=== PATIENT | female | born 1995 | race Caucasian/White ===

== ENCOUNTER 2018-01-25 23:30 | Emergency (ER) | payer MEDICAID, SELFPAY ==
[2018-01-25 23:31] VITALS: BP 123/86; PULSE 76; RESP 16; TEMP 37.2; O2SAT 98; BMI 26.9
--- NOTE | 2018-01-25 23:41 | EKG12_ITS ---
Test Reason : CP Blood Pressure : / mmHG Vent. Rate : 081 BPM Atrial Rate : 081 BPM P-R Int : 130 ms QRS Dur : 080 ms QT Int : 386 ms P-R-T Axes : 048 027 039 degrees QTc Int : 448 ms Sinus rhythm with marked sinus arrhythmia Otherwise normal ECG Confirmed by RUPAL GIRALDO, PADDY ([id number]), assistant film editor INDU MONTEZ ([id number]) on 01/27/2018 2:29:15 PM Referred By: ELIZA Confirmed By:PADDY GOLDSMITH MD
--- NOTE | 2018-01-26 00:48 | ED.DCSUM_ITS ---
- ER Visit Summary Date of Service: 01/26/18 Chief Complaint: Numerous symptoms and complaints History of Present Illness: The patient is a 22 F states she has a headache with nonproductive cough, runny nose, sore throat and abdominal pain that started several days ago. She also complains of chest pain that has a musculoskeletal component as well as pleuritic component. She states she had a spontaneous miscarriage 2 weeks ago. She states she was 2-3 weeks gestation. She denies fever, chills night sweats. She denies headache, photophobia steps of her neck. She denies any vomiting or diarrhea. She denies dysuria, frequency, urgency or hematuria. She denies any skin lesions. Physical Examination: She did not does not appear in any significant discomfort. Vital signs are marked for slight elevation blood pressure 123/86. Head is atraumatic normocephalic. Pupils equal round reactive. Extra muscles are intact. TMs are pearly white phlegm is noted. Nares patent with clear discharge. Posterior pharynx without erythema or exudate. Uvula is midline. There is postnasal drainage noted. Trach is midline with no stridor. Lungs are clear to auscultation. Heart is regular without murmur, gallop or rub. She does have reproducible chest pain. Abdomen is soft and has pain out of proportion to light tactile stimulus. Bowel sounds are present normal. There is no asymmetry, swelling, discoloration, leg vein distention, palpable cords or tenderness along the distribution of the deep venous system. She is alert oriented ?3 with a nonfocal neurologic exam Test Results: None are indicated. EKG obtained per nursing protocol feels a sinus rhythm rate of 81 and is normal. Emergency Department Course and Treatment: Patient was informed that her presentation consistent with a viral infection. She will receive a dose of ibuprofen since no contraindication and Bentyl. Treatment Plan: Prescription for anti-inflammatory Disposition: Discharged home with referral to Dr. Pritesh Mcghee iii since she does not have a physician in the area. Impression: 1. Acute viral illness 2. Pleuritic chest pain 3. Abdominal pain This note was generated with [employer] dictation software. It may contain incorrect words, spelling, and punctuation that were not noted in review of the chart prior to signing ED Disposition - Plan for ED Patient: Disposition: Home or Assisted Living Chief Complaint: Chest Pain Instructions: ED Viral Syndrome Prescriptions: Dicyclomine HCl [Bentyl] 20 mg PO TIDAC #10 cap Naproxen [Naprosyn] 500 mg PO BID #10 tab Referrals: Care Physician,No Primary [Primary Care Provider] - Pritesh Mcghee III, MD [STAFF PHYSICIAN] - 10-14 Days if not better Additional Instructions: You may be ill for another 10-14 days. Because you are smoker you may have a cough for 4 weeks.
[2018-01-26 00:52] VITALS: BP 100/56; PULSE 74; RESP 16; O2SAT 99
[2018-01-26] MEDS: Naproxen 250 MG Tablet 500 MG PO (00:53)
[2018-01-26] MEDS: Dicyclomine 10 MG Capsule 20 MG PO (00:54)
== END 2018-01-26 01:30 | disposition home or self-care (01) ==
LOC: ED 01-26 01:22
PROVIDERS: Emergency Provider Emergency Medicine
DX: J02.9 Acute pharyngitis, unspecified (principal); B34.9 Viral infection, unspecified; R09.1 Pleurisy; R07.81 Pleurodynia; R03.0 Elevated blood-pressure reading, without diagnosis of hypertension; R10.9 Unspecified abdominal pain; R51 Headache; R11.0 Nausea; Z72.0 Tobacco use
CPT/HCPCS: 93005; 99283

== ENCOUNTER 2018-02-01 21:26 | Emergency (ER) | payer MEDICAID, SELFPAY ==
[2018-02-01 21:27] VITALS: BP 128/89; PULSE 89; RESP 19; TEMP 37; O2SAT 99; BMI 27.0
--- NOTE | 2018-02-01 23:10 | ED.DCSUM_ITS ---
- ER Visit Summary Date of Service: 02/01/18 Chief Complaint: Bilateral ankle and posterior shoulder pain History of Present Illness: The patient is a 22 F significant past medical or surgical history. Patient started a new job about 3 weeks ago. Since that time due to standing she has had foot and ankle pain. Also at times posterior right shoulder pain. She denies any falls or trauma. Denies any fever. Denies any other complaints. Physical Examination: Well appearing young female. Vital signs are stable afebrile. She is in no acute distress. Pulse ox 99% on room air no signs of hypoxia. HEENT exam unremarkable. Neck nontender no lymphadenopathy. Trachea midline. Lungs clear to auscultation bilaterally. Heart regular rate and rhythm no murmur. Chest nontender. Abdomen soft. Nontender. Nondistended. Normal bowel sounds no peritoneal signs. Extremities moves all 4. Neurovascular intact. There are no red, hot or swollen joints. There is no specific areas of tenderness. She has normal range of motion of both the upper and lower extremities. Back exam is unremarkable nontender. Neurologic exam is normal. Test Results: None Emergency Department Course and Treatment: Patient's history and exam is consistent with just muscle aches and pain from a new job and being deconditioned. There are no bony deformities. No x-rays or lab workup is necessary. Treatment Plan: Motrin and discharged. Motrin and Tylenol at home. Ice to all sore areas. Hot bath and warm shower. Disposition: Discharge Impression: Myalgias This note was generated with [employer] dictation software. It may contain incorrect words, spelling, and punctuation that were not noted in review of the chart prior to signing ED Disposition - Plan for ED Patient: Chief Complaint: Other, Pain/Inj Referrals: Care Physician,No Primary [Primary Care Provider] -
--- NOTE | 2018-02-01 23:10 | ED.DEP ---
ED Disposition - Plan for ED Patient: Disposition: Home or Assisted Living Chief Complaint: Other, Pain/Inj Instructions: ED Muscle Aching Referrals: Israel Torre MD [NON-STAFF] - 10-14 Days if not better Additional Instructions: He still sore areas. Hot shower warm bath to relax her muscles. Tylenol and Motrin for pain and inflammation. Call follow-up primary care physician if not improving.
[2018-02-01] MEDS: Ibuprofen 600 MG Tablet PO (23:19)
[2018-02-01 23:23] VITALS: RESP 16
== END 2018-02-01 23:24 | disposition home or self-care (01) ==
PROVIDERS: Emergency Provider Emergency Medicine
DX: M79.1 Myalgia (principal); Z72.0 Tobacco use
CPT/HCPCS: 99282

== ENCOUNTER 2018-02-13 06:37 | Emergency (ER) | payer MEDICAID, SELFPAY ==
[2018-02-13 06:37] VITALS: BP 135/83; PULSE 74; RESP 18; TEMP 36.7; O2SAT 99; BMI 27.4
[2018-02-13 07:03] LABS: Mucous, Urine 0 SEEN /hpf (<or=2+)
--- NOTE | 2018-02-13 07:03 | ED.RN ---
Report received, care of patient assumed.
[2018-02-13 07:08] LABS: Color, Urine Yellow (Yellow); Glucose, Dipstick Normal (Normal); Ketone-Dipstick Negative (Negative); Leukocyte Esterase-Dipstick 25 /ul (Negative); Nitrite-Dipstick Negative (Negative); Occult Blood-Urine 50 /ul (Negative); Protein-Dipstick 15 mg/dl (Negative); Urine Bilirubin Dipstick Negative (Negative); Urine Clarity Sl. Cloudy (Clear); Urine Urobilinogen Normal (Normal)
[2018-02-13 07:18] LABS: Bacteria RARE /hpf (None Seen); Red Blood Cells-Urine 0-5 SEEN /hpf (0-5); Squamous Epithelial Cells - UA 5-10 SEEN /hpf (5-10); White Blood Cells 0-5 SEEN /hpf (0-5)
--- NOTE | 2018-02-13 07:18 | ED.DCSUM_ITS ---
- ER Visit Summary Date of Service: 02/13/18 Chief Complaint: Hematuria and flank pain History of Present Illness: The patient is a 22 F reports hematuria for the past 2 days. She denies dysuria or frequency. She complains of mild lower back pain. She does report a history of kidney stones but states they have always just disappeared. Patient is not sure of her last menses. She states she had a miscarriage a couple months ago. Physical Examination: Vital signs are unremarkable. Patient sitting upright in bed in no acute distress. Head neck examination is unremarkable. Heart is regular rate and rhythm. Lung sounds are clear. Abdomen is soft with mild suprapubic tenderness. No guarding or rebound. Back examination reveals no true CVA tenderness. She has mild reducible tenderness in the lower lumbar paraspinal muscles bilaterally. Test Results: CBC is normal. Chemistry studies are significant only for potassium of 3.3. Urinalysis shows 50 of blood on macroscopic examination, but 0-5 RBCs on microscopic exam. Serum test is negative. Emergency Department Course and Treatment: Patient was given a liter of IV fluids. Pelvic examination is performed reveals normal external genitalia. No lesions noted. Cervix is closed. There is a slight orange tinged to the normal vaginal mucus, but no overt bleeding. Treatment Plan: Explained to the patient that she may be spotting and getting ready to start her period. If she is passing a small kidney stone, I am not seeing signs of red blood cells in her urine. At this time I do not think imaging with radiation would be of benefit to her. She understands this. Disposition: Discharge Impression: Reported hematuria This note was generated with [employer] dictation software. It may contain incorrect words, spelling, and punctuation that were not noted in review of the chart prior to signing ED Disposition - Plan for ED Patient: Chief Complaint: Complaint Referrals: Care Physician,No Primary [Primary Care Provider] -
[2018-02-13] MEDS: 0.9% Normal Saline 1,000 ML 1000 ML IV (07:21)
[2018-02-13 07:22] LABS: Absolute Lymphocyte Count 3.46 X10^3/ul (0.83-4.51); Absolute Neutrophil Count 5.1 X10^3/uL (2.0-7.7); Basophil# 0.02 X10^3/uL; Basophil% 0.2 % (0-1); Eosinophil# 0.13 X10^3/uL; Eosinophils% 1.4 % (0-5); Hematocrit 38.2 % (37-47); Hemoglobin 12.3 g/dl (12.0-15.0); Lymphocyte # 3.46 X10^3/ul (4.0); Mean Corp Hgb Conc 32.2 g/gl (32-36); Mean Corpuscular Volume 86.8 fL (81-99); Mean Platelet Vol. 10.3 fl (6.2-12.0); Monocyte# 0.66 X10^3/uL; Monocyte% 7.1 % (0-10); Neutrophil # 5.08 X10^3/uL (2.7-7.7); Neutrophil % 54.3 % (47-70); Platelet Count 245 K/mm3 (150-450); RBC Distribution Width CV 14.3 % (11.6-14.6); RBC Distribution Width SD 45.3 fl (35.1-43.9); White Blood Count 9.4 K/mm3 (4.4-11.0)
[2018-02-13 07:24] LABS: POSITIVE COUNT NO; POSITIVE DIFFERENTIAL NO; POSITIVE MORPHOLOGY NO
[2018-02-13 07:33] LABS: Anion Gap 7 (5-15); BUN 7 mg/dL (7-18); BUN/Creat Ratio 9.5 RATIO (10-20); Calcium,Total 8.5 mg/dL (8.5-10.1); Chloride 107 mmol/L (98-107); Creatinine, Serum 0.74 mg/dL (0.55-1.02); EST Glomerular Filtration Rate 103 mL/min (>60); Est Glom Filt Rate - Afr Amer 125 mL/min (>60); Estimated Creatinine Clearance 119.27 ml/min; Glucose 69 mg/dL (74-106); Potassium 3.3 mmol/L (3.5-5.1); Sodium Level 141 mmol/L (136-145)
[2018-02-13 07:45] LABS: Pregnancy, Serum, hCG Quali. NEGATIVE Negative (0-9 Nonpreg)
[2018-02-13 08:28] VITALS: BP 125/86; PULSE 60; RESP 14; O2SAT 100
--- NOTE | 2018-02-13 08:28 | ED.DEP ---
ED Disposition - Plan for ED Patient: Disposition: Home or Assisted Living Chief Complaint: Complaint Instructions: ED Hematuria Referrals: Parker Padron MD [STAFF PHYSICIAN] - As Needed Woody Washington MD [STAFF PHYSICIAN] - As Needed
--- NOTE | 2018-02-13 08:32 | ED.RN ---
Verbal and written d/c instructions given. All questions answered. Skin w/d. ABCs intact. Gait steady out of department.
== END 2018-02-13 08:32 | disposition home or self-care (01) ==
PROVIDERS: Emergency Provider Emergency Medicine
DX: R31.9 Hematuria, unspecified (principal); M54.5 Low back pain; Z72.0 Tobacco use; Z87.442 Personal history of urinary calculi
CPT/HCPCS: 80048; 81001; 84703; 85025; 96360; 99283; J7030

== ENCOUNTER → 2024-07-25 | Outpatient (CLI) | payer MEDICAID, SELFPAY | END | disposition home or self-care (01) | LOC: PSN 08:36 | PROVIDERS: PCP Family Medicine; Referring Provider Psychiatry & Neurology Neurology; Visit Provider Psychiatry & Neurology Neurology | DX: R56.9 Unspecified convulsions (principal) | CPT/HCPCS: 95819 ==

== ENCOUNTER → 2024-07-26 | Outpatient (CLI) | payer MEDICAID, SELFPAY ==
[2024-07-26 15:20] LABS: Hematocrit 41.7 % (37-47); Mean Corp Hgb Conc 33.6 g/dL (32-36); Mean Corpuscular Hgb 29.5 pg (27.0-32.0); Platelet Count 253 K/mm3 (150-450); RBC Distribution Width CV 12.7 % (11.6-14.6); RBC Distribution Width SD 41.1 fl (35.1-43.9); Red Blood Count 4.74 M/mm3 (4.2-5.4); White Blood Count 10.6 K/mm3 (4.4-11.0)
[2024-07-26 16:16] LABS: ALB/GLOB Ratio 0.9 RATIO (0.9-2.4); AST(SGOT) 16 U/L (15-37); Alanine Aminotransfer ALT/SGPT 21 U/L (13-56); Albumin, Serum 3.5 g/dL (3.2-5.0); Alkaline Phosphatase 65 U/L (45-117); Anion Gap 6 (5-15); BUN 7 mg/dL (7-18); BUN/Creat Ratio 10.1 RATIO (10-20); Calcium,Total 9.1 mg/dL (8.5-10.1); Chloride 107 mmol/L (98-107); Creatinine, Serum 0.69 mg/dL (0.55-1.02); EST Glomerular Filtration Rate 106 mL/min (>60); Est Glom Filt Rate - Afr Amer 128 mL/min (>60); Globulin 3.8 g/dL (2.2-4.2); Glucose 103 mg/dL (74-106); Potassium 3.9 mmol/L (3.5-5.1); Protein, Total 7.3 g/dL (6.4-8.2); Sodium Level 138 mmol/L (136-145)
[2024-07-26 18:06] LABS: Vitamin B12 326 pg/mL (211-911)
[2024-08-02 19:08] LABS: Free Kappa Light Chains 24.5 mg/L (3.3-19.4); Free Lambda Light Chains 26.4 mg/L (5.7-26.3); Vitamin B1, Thiamine 133.6 nmol/L (66.5-200.0)
== END | disposition home or self-care (01) ==
PROVIDERS: PCP Family Medicine; Referring Provider Psychiatry & Neurology Neurology; Visit Provider Psychiatry & Neurology Neurology
DX: G43.009 Migraine without aura, not intractable, without status migrainosus (principal); R56.9 Unspecified convulsions; F81.9 Developmental disorder of scholastic skills, unspecified; R20.0 Anesthesia of skin
CPT/HCPCS: 36415; 80053; 82607; 82746; 83883; 84425; 84443; 85027

== ENCOUNTER → 2024-12-26 | Outpatient (CLI) | payer MEDICAID, SELFPAY ==
[2024-12-29 17:07] LABS: Albumin 4.3 g/dL (2.9-4.4); Alpha-1-Globulins 0.2 g/dL (0.0-0.4); Alpha-2-Globulins 0.7 g/dL (0.4-1.0); Gamma Globulin 1.1 g/dL (0.4-1.8); Immunoglobulin A 387 mg/dL (87-352); Immunoglobulin G 1199 mg/dL (586-1602); Immunoglobulin M 125 mg/dL (26-217); PROEL- TOTAL PROTEIN 7.5 g/dL (6.0-8.5)
== END | disposition home or self-care (01) ==
PROVIDERS: PCP Family Medicine; Referring Provider Psychiatry & Neurology Neurology; Visit Provider Psychiatry & Neurology Neurology
DX: R20.0 Anesthesia of skin (principal)
CPT/HCPCS: 36415; 82784; 84165; 86334; 86335

== ENCOUNTER → 2025-01-25 | Outpatient (CLI) | payer MEDICAID, SELFPAY ==
--- NOTE | 2025-01-25 06:55 | MRI_ITS ---
EXAM: MRI brain with and without contrast. CLINICAL HISTORY: migraine headache; family Hx of cerebral aneurysm COMPARISON: None. TECHNIQUE: Multisequence multiplanar MRI brain was performed with and without intravenous contrast. Contrast: 18 mL Clariscan. FINDINGS: Cerebrum: Unremarkable signal characteristics. No acute infarct, appreciable intracranial hemorrhage, mass, or mass effect. Midline structures within normal limits. Cerebellum: Unremarkable. No evidence of cerebellar tonsillar herniation. Brainstem: Unremarkable. Ventricles/extra-axial spaces: Unremarkable. No hydrocephalus.. Major flow voids: Grossly unremarkable within limits of technique. Paranasal sinuses: Mucous retention cyst, left maxillary sinus. Scalp/calvarium: Unremarkable. Orbits: Grossly unremarkable within limits of technique. Other: No abnormal enhancement. MRI/Brain W/WO Contrast IMPRESSION: 1. No acute abnormality or findings which might explain the patient's symptoms. 2. Additional description as above. Reading Location: [id number]
--- NOTE | 2025-01-25 06:55 | MRI_ITS ---
PROCEDURE: MRA HEAD ONLY WITHOUT CONTRAST REASON FOR EXAM: Family history of cerebral aneurysm COMPARISON: None. TECHNIQUE: 3D Time of Flight MRA of the head was performed without intravenous contrast including generation of 3D reformats. FINDINGS: Anatomy: origin of the right PNEUMATIC TUBE OPERATOR suspected with either absent or diminutive right P1 segment and prominent right posterior communicating artery. Anterior Circulation: No significant stenosis or appreciable aneurysm identified. Posterior Circulation: No significant stenosis or appreciable aneurysm identified. Suspect a clinical triangular 2 mm left PCOM infundibulum along the junction of the PCOM and the left PNEUMATIC TUBE OPERATOR (series 2, image 95). Left PICA and origin not visualized. Diminutive left vertebral artery with dominant right vertebral artery. MRI/MRA Head ONLY without Contrast IMPRESSION: 1. No definite cerebral aneurysm identified within limits of MRA technique. Mcnamara spect 2 mm left PCOM infundibulum. 2. Note the left PICA was not visualized. 3. Additional description as above. Reading Location: [id number]
== END | disposition home or self-care (01) ==
LOC: MRI 06:47
PROVIDERS: PCP Family Medicine; Referring Provider Psychiatry & Neurology Neurology; Visit Provider Psychiatry & Neurology Neurology
DX: G43.009 Migraine without aura, not intractable, without status migrainosus (principal); Z82.49 Family history of ischemic heart disease and other diseases of the circulatory system
CPT/HCPCS: 70544; 70553; A9575

== ENCOUNTER → 2025-02-08 | Outpatient (CLI) | payer MEDICAID, SELFPAY ==
--- NOTE | 2025-02-08 14:17 | NEURO ---
NCS and/or EMG Patient Report Ordering Doctor: Sumit Franco DATE OF SERVICE: 02/08/25 Sherry presents for electrodiagnostic testing of the lower limbs. She reports numbness and tingling in the feet and lower back pain. Electrodiagnostic findings: Peroneal motor nerve demonstrates normal distal latency, amplitude and conduction velocity bilaterally. Tibial motor response within normal limits bilaterally. Normal tibial and peroneal F?waves. Normal H?reflex but laterally. Sensory responses are within normal limits. Needle EMG testing was performed in the lower limbs. All muscles tested showed no evidence of denervation with normal motor unit action potentials. Electrodiagnostic impression: This a normal electrodiagnostic study in the lower limbs. There is no electrodiagnostic evidence for peripheral neuropathy or lumbosacral radiculopathy. Multi Select Codes Neurology Neurology Interp Codes: 15622-61 Musc test done w/n test comp (interp) (2) and 49426-37 Nrv cndj test 11-12 studies (interp)
== END | disposition home or self-care (01) ==
LOC: PSN 08:54
PROVIDERS: PCP Family Medicine; Referring Provider Psychiatry & Neurology Neurology; Visit Provider Psychiatry & Neurology Neurology
DX: R20.0 Anesthesia of skin (principal); M54.50 Low back pain, unspecified
CPT/HCPCS: 95886; 95913

== ENCOUNTER → 2025-06-21 | Outpatient (CLI) | payer MEDICAID, SELFPAY ==
--- NOTE | 2025-06-21 12:09 | EKG12_ITS ---
Test Reason : ORTHOSTATIC HYPOTEN Blood Pressure : */* mmHG Vent. Rate : 75 BPM Atrial Rate : 75 BPM P-R Int : 130 ms QRS Dur : 80 ms QT Int : 406 ms P-R-T Axes : 46 12 26 degrees QTcB Int : 453 ms Normal sinus rhythm Normal ECG Confirmed by Que Holloway ([id number]), television news video editor TASNEEM LINCOLN ([id number]) on 06/22/2025 11:28:12 AM Referred By: Sumit Franco Confirmed By: Que Holloway
== END | disposition home or self-care (01) ==
LOC: PSN 12:06
PROVIDERS: PCP Physician Assistant; Referring Provider Psychiatry & Neurology Neurology; Visit Provider Psychiatry & Neurology Neurology
DX: I95.1 Orthostatic hypotension (principal)
CPT/HCPCS: 93005